=== PATIENT | female | born 1960 | race Caucasian/White ===

== ENCOUNTER → 2019-06-20 | Outpatient (CLI) | payer MEDICAID ==
--- NOTE | 2019-06-21 17:07 | RAD ---
DATE: 06/20/2019 EXAM: DIGITAL SCREEN BILAT W/CAD HISTORY: Routine screening COMPARISON: None available This study was interpreted with the benefit of Computerized Aided Detection (CAD). Breast Density: SCATTERED The breast parenchyma shows scattered fibroglandular densities. Breast parenchyma level B. FINDINGS: No suspicious mass, calcification, or distortion. Benign calcification present. IMPRESSION: Unremarkable BI-RADS CATEGORY: 2 BENIGN FINDING(S) RECOMMENDED FOLLOW-UP: 12M 12 MONTH FOLLOW-UP PQRS compliance statement: Patient information was entered into a reminder system with a target due date for the next mammogram. Mammography is a sensitive method for finding small breast cancers, but it does not detect them all and is not a substitute for careful clinical examination. A negative mammogram does not negate a clinically suspicious finding and should not result in delay in biopsying a clinically suspicious abnormality. "Our facility is accredited by the [employer] Mammography Program."
== END | disposition home or self-care (01) ==
LOC: MAMMO 13:07
PROVIDERS: ATTEND Family Medicine
DX: Z12.31 Encounter for screening mammogram for malignant neoplasm of breast (principal); N64.89 Other specified disorders of breast
CPT/HCPCS: 77067

== ENCOUNTER → 2019-06-23 | Outpatient (CLI) | payer MEDICAID ==
--- NOTE | 2019-06-23 17:22 | RAD ---
CHEST PA LATERAL, SHOULDER 2+V LEFT Clinical indications: Shortness of breath. Chronic left shoulder pain. TWO-VIEW CHEST X-RAY COMPARISON: None available. Findings: Bilateral interstitial lung infiltrates are seen most prominent within the right lung base. There is mild blunting of the right lateral costophrenic angle but not the posterior costophrenic angle. Therefore, this may represent pleural thickening rather than effusion. No pneumothorax is seen. The heart size and pulmonary vasculature and mediastinum and both gisselle are unremarkable. Old postsurgical or posttraumatic changes of the right rib cage are seen. Surgical hardware is seen within the mid thoracic spine IMPRESSION: Bilateral interstitial lung disease with more prominent right lung base infiltrate. The latter finding could be due to scarring or pneumonia. There are postoperative or old posttraumatic changes of the right hemithorax including mild right lateral pleural thickening. THREE-VIEW LEFT SHOULDER STUDY: There is chronic erosion of the left glenohumeral joint. No AC joint separation is seen. No acute fracture or dislocation is seen. 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 This may be secondary to old rheumatoid arthritis or may represent neuroarthropathy secondary to a central lesion of the cervical cord such as syringomyelia or could be secondary to old avascular necrosis. Electronically signed by: Jabari Durán MD (06/23/2019 5:19 PM) [id number]
== END | disposition home or self-care (01) ==
LOC: RAD 16:11
PROVIDERS: ATTEND Family Medicine
DX: J84.89 Other specified interstitial pulmonary diseases (principal); M85.812 Other specified disorders of bone density and structure, left shoulder
CPT/HCPCS: 71046; 73030